=== PATIENT | male | born 1970 | race African-American/Black ===

== ENCOUNTER 2017-11-27 08:28 | Inpatient (IN) | payer OTHER ==
[~2017-11-27] VITALS: Ht 170.2 cm; Wt 74.8 kg
[2017-11-27] VITALS (19 sets, daily range): BP systolic 138–174; BP diastolic 76–101
--- NOTE | ~2017-11-27 | D ---
[facility] [address] DISCHARGE SUMMARY Name: SUSAN PETERSON Toni Room #: 241-P [facility]..#: [id number] Admission: 11/27/17 Attend Phys: Lauro Noriega MD Discharge: 11/28/17 Date of : 72 Report #: [id number] THIS REPORT FOR: //name// CC: ROSHAN physician/PCP Lauro Noriega DATE OF SERVICE: 11/28/2017 HISTORY OF PRESENT ILLNESS: The patient is a 47-year-old man with history of difficult to control hypertension, as well as chronic kidney disease, who came to the hospital with nausea, vomiting, and vertigo. The patient was also found to have elevated troponin, without significant changes on EKG. Please refer to the admission H and P for details. HOSPITALIZATION COURSE: The patient was hospitalized. He was started on heparin drip. Foster Care Therapist was consulted given the patient's multiple risk factors. He underwent cardiac catheterization, that revealed no coronary artery disease. His ejection fraction was normal. The patient was encouraged to take his medications properly, and control his blood pressure better. He was also advised to quit smoking cigarettes. This morning, the patient's physical examination is acceptable, as documented in the patient's chart. He feels well, and he has no complaints. The patient will be discharged home today with close outpatient followup. DISCHARGE DIAGNOSES: 1. Elevated troponin, no coronary artery disease based on cardiac catheterization. Elevated troponin is likely related to uncontrolled hypertension. 2. Uncontrolled hypertension, noncompliance to medications. Overall, better controlled. 3. Chronic kidney disease stage 3. DISCHARGE MEDICATIONS: Please refer to the medication reconciliation list. DISPOSITION: The patient is discharged home. FOLLOWUP PLAN: Follow up with the beef ribber and primary care physician within 7-10 days. <ELECTRONICALLY SIGNED> By: Merly Lee MD 11/30/17 1647 0856 0915 Merly Lee MD /nt
--- NOTE | ~2017-11-27 | CATHLAB ---
[facility] [address] [place] [address] INVASIVE PROCEDURE REPORT Name: SUSAN POWERS Room #: 241-P [facility] IN ..#: [id number] Admission: 11/27/17 Attend Phys: Lauro Noriega MD Discharge: Date of : 72 Date of Service: 11/27/172231 Report #: [id number] THIS REPORT FOR: //name// APPROVED REPORT Patient Details Patient Status: In-Patient Room #: The patient is a 47 year-old male Event Personnel Kam Guerra Platen Grinder, Fernanda Blackmon, Belkis Oro [place], Ariel RN RN, Julito Gamez RN assistant manager Performed 86703 Initial Mod Sed Same Phys/QHP Gr5y 469600 Art Access - R femoral artery* Left Heart Cath w/or w/o Coronaries [id number] [facility] Hemostasis with Manual pressure Indication Abnormal ECG, elevated troponin Risk Factors Hypertension, Tobacco History () Procedure Narrative The patient was brought urgently to the Cardiac Catheterization Laboratory and was prepped and draped in a sterile manner. The Right Groin^ was infiltrated with 1% Lidocaine subcutaneous anesthesia. A PINNACLE 4FR Sheath #[id number] sheath was inserted into the RFA^. Coronary angiography was performed using coronary diagnostic catheters. The right coronary system was accessed and visualized with a JR 4 catheter. The left coronary system was accessed and visualized with a JL 4 catheter. The left ventricle was accessed and visualized with a JR 4 catheter. Left ventricular/Aortic Valve gradient assessed via catheter pullback. Hemostasis was obtained with manual pressure following sheath removal without any complications. The patient tolerated the procedure well and there were no complications associated with the procedure. There was no hematoma. Intraoperative Conscious Sedation Sedation start time: 18:18 Case end Time: 18:32 Versed 2.0 mg [facility] [place] [address] INVASIVE PROCEDURE REPORT Name: SUSAN POWERS Room #: 241-P [facility] IN ..#: [id number] Admission: 11/27/17 Attend Phys: Lauro Noriega MD Discharge: Date of : 72 Date of Service: 11/27/172231 Report #: [id number] Fluoro Time: 1.18 minutes Dose: DAP 1412.40 cGycm2 184 mGy Contrast Type and Amount: Omnipaque 55 ml Coronary Angiography The patient's coronary anatomy is right dominant. Diagnostic Cath Left Main LARGE CALIBER OF NORMAL ORIGIN. BIFURCATES INTO LAD AND LCX. IT IS FREE OF SIGNIFICANT OBSTRUCTIVE LESIONS LAD LARGE CALIBER TYPE III VESSEL COURSINF IN THE ANTERIOR INTERVENTRICULAR SULCUS GIVING RISE TO SEPTAL AND DIAGONAL BRANCHES. IT TAPERS TOWARDS THE APEX AND OIS FREE OF SIGNIFICANT STENOTIC LESIONS Diagonal 1 MODERATE CALIBER VESSEL WITHOUT SIGHNIFICANT STENOTIC LESIONS. Circumflex LARGE CALIBER NON-DOMINANT VESSEL GIVING RISE TO MARGINAL BRANCHES IT COURSES POSTERIORLY FREE OF SIGNIFICANT LESIONS OM1 MODERATE CALIBER VESSEL FREE OF SIGNIFICANT STENOSIS Right Coronary LARGE CALIBER DOMINANT VESSEL FREE OF SIGNIFICANT STENOTIC LESION R PDA MODERATE IN CALIBER FREE OF SIGNIFICANT STENOTIC LESION Left Ventriculography Left Ventriculography was not performed. Hemodynamics The aortic pressure is 169/85 mmHg with a mean of 127 mmHg. The left ventricular pressure is 179/9 mmHg with a mean of mmHg. The left ventricular end diastolic pressure is 33 mmHg. Conclusion 1. ESSENTIALLY NORMAL CORONARY ARTERIES 2. NORMAL HEMODYNAMICS Recommendations Cardiac Risk Reduction Program <ELECTRONICALLY SIGNED> By: Kam Guerra MD 11/27/172231 31 31 Kam Guerra MD /INF
--- NOTE | ~2017-11-27 | EKG ---
[address] [place] [address] ELECTROCARDIOGRAM REPORT Name: SUSAN POWERS Room #: 241-P ADM IN M.R.#: [id number] Admission: 11/27/17 Attend Phys: Lauro Noriega MD Discharge: Date of : 72 Report #: [id number] THIS REPORT FOR: //name// [facility] ED Test Date: 2017-11-27 Test Time: 12:41:24 Pat Name: SUSAN POWERS Department: Room: 241 Gender: M Box Inspector: Mir JIM : 1970 Requested By: Ziggy Diamond Order Number: [id number] MD: Brent Macario Measurements Intervals [place] Rate: 81 P: 63 OK: 125 QRS: -16 QRSD: 96 T: 93 QT: 422 QTc: 490 Interpretive Statements Sinus rhythm Biatrial enlargement Borderline left axis deviation Nonspecific T abnormalities, lateral leads ST elev, probable normal early repol pattern Borderline prolonged QT interval Compared to ECG 08/20/2013 03:41:56 T-wave abnormality now present ST (T wave) deviation now present Left ventricular hypertrophy no longer present Electronically Signed On 11-28-2017 8:07:20 ROLLED MATERIALS WORKER by Brent Macario [email or web address] <ELECTRONICALLY SIGNED> By: Brent Macario MD 11/28/17 0807 1241 1241 Brent Macario MD /EPI
--- NOTE | ~2017-11-27 | 2DMMODE ---
[facility] [address] [place] [address] 2 D/M-MODE ECHOCARDIOGRAM Name: PRIYASUSAN Toni Room #: 241-P [facility] IN ..#: [id number] Admission: 11/27/17 Attend Phys: Lauro Noriega MD Discharge: Date of : 72 Date of Service: 11/28/17 0955 Report #: [id number] THIS REPORT FOR: //name// APPROVED REPORT Study performed: 11/28/2017 09:05:58 EXAM: Comprehensive 2D, Doppler, and color-flow Echocardiogram Patient Location: ICU Room #: 241 Status: routine BSA: 1.85 BP: 164/93 mmHg Other Information Study Quality: Good Indications Elevated Troponin Hypertension/HDD 2D Dimensions RVDd: 35.00 mm LVEF(%): 55.60 (>50%) IVSd: 21.27 (7-11mm) LVOT Diam: 19.04 (18-24mm) LVDd: 44.84 mm PWd: 19.25 (7-11mm) Ascending Ao: 32.21 (22-36mm) LVDs: 31.92 (25-40mm) Aortic Root: 30.97 mm IVC: 24.00 mm Dacosta's LVEF: 55.60 % Volumes Left Atrial Volume (Systole) Single Plane 4CH: 52.03 mL Single Plane 2CH: 48.73 mL LA ESV Index: 30.00 mL/m2 Aortic Valve AoV Peak Josef.: 1.46 m/s AO Peak Gr.: 8.53 mmHg LVOT Max P.02 mmHg LVOT Max V: 1.12 m/s DONIS Vmax: 2.18 cm2 Mitral Valve E/A Ratio: 1.6 MV Decel. Time: 191.47 ms [facility] [place] [address] 2 D/M-MODE ECHOCARDIOGRAM Name: SUSAN POWERS Room #: [facility]#: [id number] Admission: 11/27/17 Attend Phys: Lauro Noriega MD Discharge: Date of : 72 Date of Service: 11/28/17 0955 Report #: [id number] MV E Max Josef.: 0.98 m/s MV A Josef.: 0.60 m/s MV PHT: 55.53 ms IVRT: 121.11 ms Pulmonary Valve PV Peak Josef.: 1.06 m/s PV Peak Gr.: 4.55 mmHg Pulmonary Vein P Vein S: 0.68 m/s P Vein A: 0.41 m/s P Vein D: 0.57 m/s P Vein A Dur.: 128.0 msec P Vein S/D Ratio: 1.19 Tricuspid Valve RAP Estimate: 10.00 mmHg Left Ventricle The left ventricle is normal size. There is normal LV segmental wall motion. Severe concentric left ventricular hypertrophy. The left ventricular systolic function is normal. The left ventricular ejection fraction is within the normal range. LVEF is 55%. Grade II - pseudonormal filling dynamics. Right Ventricle The right ventricle is normal size. The right ventricular systolic function is normal. Atria The left atrium size is normal. Aortic Valve The aortic valve is trileaflet, mildly calcified No aortic regurgitation is present. There is no aortic valvular stenosis. Mitral Valve The mitral valve is normal in structure. Mild mitral regurgitation. No evidence of mitral valve stenosis. Tricuspid Valve The tricuspid valve is normal in structure. There is no tricuspid valve regurgitation noted. Unable to assess PA pressure. Pulmonic Valve The pulmonary valve is normal in structure. Trace pulmonic regurgitation. [address] [address] 2 D/M-MODE ECHOCARDIOGRAM Name: SUSAN POWERS Toni Room #: 241-P [facility] IN ..#: [id number] Admission: 11/27/17 Attend Phys: Lauro Noriega MD Discharge: Date of : 72 Date of Service: 11/28/17 0955 Report #: [id number] Great Vessels The aortic root is normal in size. IVC is dilated and collapses >50% with inspiration. Pericardium There is no pericardial effusion. <Conclusion> The left ventricular systolic function is normal. Severe concentric left ventricular hypertrophy. There is normal LV segmental wall motion. LVEF 55%. Grade II diastolic dysfunction The aortic valve is trileaflet, mildly calcified. No aortic regurgitation, no stenosis The mitral valve is normal in structure. Mild mitral regurgitation. There is no pericardial effusion. <ELECTRONICALLY SIGNED> By: Carlos Pak MD, [facility] 11/28/17954 4 4 Carlos Pak MD, FACC /INF
--- NOTE | ~2017-11-27 | EKG ---
[place] [address] [facility] [place] [address] ELECTROCARDIOGRAM REPORT Name: SUSAN POWERS Room #: 170-1 ADM IN M.R.#: [id number] Admission: 11/27/17 Attend Phys: Lauro Noriega MD Discharge: Date of : 72 Report #: [id number] THIS REPORT FOR: //name// [facility] ED Test Date: 2017-11-27 Test Time: 09:57:26 Pat Name: SUSAN POWERS Department: Room: 170 Gender: M Appliance Fixer: Dalton VELEZ : 1970 Requested By: Ziggy Diamond Order Number: [id number] MD: Carlos Pak Measurements Intervals [place] Rate: 91 P: 65 ND: 120 QRS: -21 QRSD: 84 T: 82 QT: 386 QTc: 475 Interpretive Statements Sinus rhythm Biatrial enlargement Probable left ventricular hypertrophy ST elev, probable normal early repol pattern Compared to ECG 08/20/2013 03:41:56 No significant change was found Electronically Signed On 11-27-2017 13:51:46 EQUIPMENT SALES SPECIALIST by Carlos Pak [email or web address] <ELECTRONICALLY SIGNED> By: Carlos Pak MD, [facility] 11/27/17 7901 0957 0957 Carlos Pak MD, [facility] /EPI
[~2017-11-27 08:28] MED LIST: BONINE25 MG PO; CLONIDINE HCL0.2 M2 PO; HYDROCHLOROTHIA25 M1; K-DUR 20 MEQ T20 MEQ PO; KLOR-CON 1010 MEQ; LISINOPRIL; PRINIVIL10 MG PO; VALIUM5 MG PO
[2017-11-27 09:36] LABS: ABSOLUTE NEUTROPHILS 6.8 thou/uL (1.4-8.2); BASOPHILS 0.6 % (0.0-2.0); EOSINOPHILS 0.1 % (0.0-3.0); HEMATOCRIT 50.8 % (42.0-52.0); HEMOGLOBIN 17.5 gm/dL (14.0-18.0); LYMPHOCYTES 8.4 % (24.0-44.0); MCH 31.6 pg (26.0-34.0); MCHC 34.5 g/dL (28.0-37.0); MCV 91.7 fL (80.0-100.0); MONOCYTES 7.5 % (1.0-8.0); PLATELET COUNT 165 thou/uL (150-400); POLYS 83.4 % (36.0-66.0); RBC 5.53 mil/uL (4.50-6.00); RDW 14.2 % (10.5-14.5); WBC 8.2 thou/uL (4.0-11.0)
[2017-11-27 09:40] LABS: CALCIUM 8.6 mg/dL (8.5-10.1); CREATININE 1.8 mg/dL (0.7-1.3); POTASSIUM 3.8 mmol/L (3.5-5.1)
[2017-11-27 09:49] LABS: TROPONIN-I 0.05 ng/mL (<0.06)
[2017-11-27] MEDS ORDERED: ONDANSETRON HCL4 M2 PO (12:25)
[2017-11-27 13:16] LABS: HEMATOCRIT 46.6 % (42.0-52.0); HEMOGLOBIN 16.1 gm/dL (14.0-18.0); MCH 31.8 pg (26.0-34.0); MCHC 34.6 g/dL (28.0-37.0); MCV 91.8 fL (80.0-100.0); RBC 5.07 mil/uL (4.50-6.00); RDW 14.6 % (10.5-14.5); WBC 8.8 thou/uL (4.0-11.0)
[2017-11-27 13:34] LABS: PROTIME 10.2 Seconds (9.3-11.4)
[2017-11-28] VITALS (18 sets, daily range): BP systolic 134–182; BP diastolic 84–112
[2017-11-28 03:53] LABS: HEMATOCRIT 46.7 % (42.0-52.0); HEMOGLOBIN 15.9 gm/dL (14.0-18.0); MCH 31.4 pg (26.0-34.0); MCV 92.4 fL (80.0-100.0); RBC 5.06 mil/uL (4.50-6.00); RDW 14.3 % (10.5-14.5); WBC 7.6 thou/uL (4.0-11.0)
[2017-11-28 04:02] LABS: CALCIUM 7.9 mg/dL (8.5-10.1); CREATININE 1.7 mg/dL (0.7-1.3); POTASSIUM 3.6 mmol/L (3.5-5.1)
[2017-11-28] MEDS ORDERED: NIFEDIPINE ER30 M1 PO (09:01)
== END 2017-11-28 10:21 | disposition home or self-care (01) | DRG 684 ==
LOC: ER 08:28 → EROBS 12:57 → ICU 16:32
PROVIDERS: Nurse Practitioner
PROC: B2111ZZ Fluoroscopy of Multiple Coronary Arteries using Low Osmolar Contrast (ICD-10-PCS; principal; 2017-11-27)
PROC: 4A023N7 Measurement of Cardiac Sampling and Pressure, Left Heart, Percutaneous Approach (ICD-10-PCS; principal; 2017-11-27)
DX: I12.9 Hypertensive chronic kidney disease with stage 1 through stage 4 chronic kidney disease, or unspecified chronic kidney disease (principal); N18.3 Chronic kidney disease, stage 3 (moderate); F17.210 Nicotine dependence, cigarettes, uncomplicated; F41.9 Anxiety disorder, unspecified; Z71.6 Tobacco abuse counseling; Z90.49 Acquired absence of other specified parts of digestive tract; Z79.899 Other long term (current) drug therapy; Z82.49 Family history of ischemic heart disease and other diseases of the circulatory system; Z88.0 Allergy status to penicillin; Z88.8 Allergy status to other drugs, medicaments and biological substances; Z91.14 Patient's other noncompliance with medication regimen; Z23 Encounter for immunization
CPT/HCPCS: 10078